=== PATIENT | male | born 1975 | race Caucasian/White ===

== ENCOUNTER → 2023-03-18 15:33 | Outpatient (BNVA) | payer OTHER, SELFPAY | PROVIDERS: Visit Provider Physician Assistant | DX: Z13.89 Encounter for screening for other disorder (principal) ==

== ENCOUNTER → 2023-07-05 15:22 | Outpatient (BNVA) | payer OTHER, SELFPAY | PROVIDERS: Visit Provider Physician Assistant | DX: M54.12 Radiculopathy, cervical region (principal); G62.9 Polyneuropathy, unspecified | CPT/HCPCS: 99212 ==

== ENCOUNTER 2023-07-21 08:10 | Outpatient (AMB) | payer OTHER, SELFPAY ==
--- NOTE | 2023-07-21 08:14 | MHC.OFFVIS ---
Intake Vital Signs 07/21/23 08:16 Height 5 ft 11 in Weight 149 lb BMI 20.8 BP 120/74 Blood Pressure Location Rt brachial Position Sitting Intake Visit Reasons: NPV-Polyneuropathy Intake Note: Patient presents for new patient evaluation. Patient states I don't sleep,i toss and turn they tried me on medicine and nothing works. Allergies morphine Allergy (Severe, Verified 07/21/23 08:18) Anaphylaxis Medication List - Last Reconciled 07/21/23 by Florecita Otoole MD clonidine HCl 0.1 mg PO TID omeprazole 40 mg PO DAILY Oxygen Home Use As directed prazosin 2 mg PO BEDTIME sertraline 50 mg PO DAILY HPI HPI Comments History of Present Illness Details 47y/o male with chronic neck issues comes for evaluation of burning , sharp pain,tingling sensation in his feet, legs ,hands. He is not clear when this started but says atleast 5 years even prior to his anterior cervical fusion surgery. He was seen at spine center and had another surgery- foraminotomies in Nov 2022 but did not notice any change the symptoms. The pain is present throughout the day with rest and action. He constantly moves his hands and feet to get comfortable. He reports throbbing pain in the neck since his surgery. He denies numbness. He reports generalized weakness. No urinary incontinence. He reports some urinary retention ? sees urologist. He has constipation seen by GI. He denies double vision , speech problems . He has chronic insomnia - has trouble falling asleep and staying asleep. he also has loud snoring and excessive daytime fatigue. He reports chronic generalized headaches atleast for 5 years , with nausea with occasional photophobia . He takes ibuprofen and extra strenghth tylenol almost every day. He says he has had multiple evaluations for his chronic pain. He does not work- stopped 7 years ago because of neck pain. [facility] Medical History (Updated 07/21/23 @ 08:51 by Florecita Otoole MD) Asthma Chronic headaches COPD (chronic obstructive pulmonary disease) Depression GERD (gastroesophageal reflux disease) Insomnia Memory loss Neck pain with history of cervical spinal surgery Numbness and tingling in both hands Numbness and tingling of both lower extremities PTSD (post-traumatic stress disorder) Surgical History (Updated 07/21/23 @ 08:19 by TREVOR Zaidi) H/O knee surgery H/O neck surgery History of carpal tunnel release Family History (Updated 07/21/23 @ 08:20 by TREVOR Zaidi) Mother Cancer Brother Cancer Sister Cancer Social History (Updated 07/21/23 @ 08:20 by TREVOR Zaidi) Alcohol intake: never Patient Tobacco Use Status: Current someday Tobacco user Review of Systems Const Reports headache(s) and Reports weight loss ENT Reports otalgia, Reports headache(s) and Reports neck pain Card Reports dyspnea Resp Reports dyspnea GI Reports constipation and Reports nausea Reports difficulty urinating Musc Reports back pain, Reports neck pain and Reports tingling Neuro Reports headache(s), Reports memory loss, Reports tingling and Reports paresthesias Psych Reports depression and Reports memory loss Physical Exam Vital Signs: Last Vital Signs BP 120/74 07/21/23 08:16 BMI result Body Mass Index 20.8 Const General: cooperative, comfortable and no acute distress Nutritional Appearance: average body habitus Orientation/consciousness: patient oriented x3 Eyes Pupils: Equal, round and reactive pupils present Neuro Other: restricted range of motion neck with tightness tenderness in mariaa trapezius and splenius weakness of mariaa hand grasps General: patient oriented x3, tone normal, moves all extremities and no focal motor deficits Cranial nerves: Yes Facial sensation intact/muscles of mastication intact, Yes Equal, round and reactive pupils present, Yes Bilaterally intact EOM present, Yes Nystagmus not present, Yes Normal facial strength present and Yes Midline tongue present Cognition (Neuro): normal cognition Gait exam (Neuro): Normal gait present Motor exam (neuro): 5/5 motor strength present throughout and Normal motor muscle tone present throughout Deep tendon reflexes (DTR's): Right triceps reflex intensity grade: 2+, Left triceps reflex intensity grade: 2+, Rt Biceps (C5, C6): 2+, Left biceps reflex intensity grade: 2+, Right brachioradialis reflex intensity grade: 2+, Left brachioradialis reflex intensity grade: 2+, Right patellar reflex intensity grade: 2+ and Left patellar reflex intensity grade: 3+ Coordination: [id number] test normal Assessment & Plan Assessment & Plan (1) Numbness and tingling in both hands: Code(s): R20.0 - Anesthesia of skin; R20.2 - Paresthesia of skin (2) Numbness and tingling of both lower extremities: Code(s): R20.0 - Anesthesia of skin; R20.2 - Paresthesia of skin (3) Neck pain with history of cervical spinal surgery: Code(s): M54.2 - Cervicalgia; Z98.890 - Other specified postprocedural states Plan Reports from PCP for review- labs, MRIs, previous neuro evaluations etc I will schedule him for EMG NCS to evaluate for possible neuropathy I will trial him on gabapentin 300mg bid Baclofen 10mg qhs and magnesium 400mg qhs Orders: Orders NE electromyogram (EMG) Today R20.0 - Anesthesia of skin, R20.2 - Paresthesia of skin Referrals Pain Management Referral M54.2 - Cervicalgia, Z98.890 - Other specified postprocedural states Medications: New gabapentin 300 mg PO BID 60 caps 3RF baclofen 10 mg PO BEDTIME 30 tabs 6RF magnesium oxide 400 mg PO BEDTIME 30 tabs 6RF Coding Level of Care Code New Pt Level 4 (25546) Diagnoses Numbness and tingling in both hands R20.0; R20.2 Numbness and tingling of both lower extremities R20.0; R20.2 Neck pain with history of cervical spinal surgery M54.2; Z98.890
[2023-07-21 08:16] VITALS: BP 120/74; BMI 20.8
== END 2023-07-21 08:56 | disposition home or self-care (01) ==
PROVIDERS: Visit Provider Psychiatry & Neurology Neurology
DX: R20.0 Anesthesia of skin (principal); R20.2 Paresthesia of skin; M54.2 Cervicalgia; Z98.890 Other specified postprocedural states
CPT/HCPCS: 99204

== ENCOUNTER → 2023-07-21 08:10 | Outpatient (BNVA) | payer OTHER, SELFPAY | PROVIDERS: Visit Provider Psychiatry & Neurology Neurology | DX: R20.0 Anesthesia of skin (principal); R20.2 Paresthesia of skin; M54.2 Cervicalgia | CPT/HCPCS: 99202 ==

== ENCOUNTER 2023-07-27 08:56 | Outpatient (AMB) | payer OTHER, SELFPAY ==
--- NOTE | 2023-07-27 09:12 | MHC.OFFVIS ---
Intake Vital Signs 07/27/23 09:18 Height 5 ft 11 in Weight 152 lb 6 oz BMI 21.2 BP 120/80 Blood Pressure Location Lt brachial Position Sitting Respiration 16 Pulse 78 Pulse Source Pulse Oximeter Pulse Oximetry (%) 96 Oxygen Delivery Method Room Air Intake Visit Reasons: CERVICALGIA Allergies morphine Allergy (Severe, Verified 07/27/23 09:09) Anaphylaxis HPI HPI Comments History of Present Illness Details Kirby is a very pleasant 47 year old male who presents to the office today for evaluation and management of his chronic neck pain. Patient s/p numerous surgeries to his cervical spine, most recent one in 2022 at [facility]. He reports all over burning pain that has been present since before surgery but seems to be getting worse. This pain is constant and unrelenting. Surgery did not alleviate the pain. He was recently evaluated by Duane García, neurosurgery and also by Dr. Otoole in neurology. Neurosurgery ordered MRI Cervical spine that was completed at [facility], patient is awaiting follow up with their office. Neurology started patient on gabapentin, baclofen and magnesium. He states none of these medications are helping. EMG order pending. He was given oxycodone at some point in the past and reports that provided him some relief. Pain today is rated 8/10, burning and constant. In terms of muscle damage condition is described as aching, shooting, spasming, hot, burning, stabbing, sharp, numb, throbbing, tingling, pins and needles. Pain is negatively impacting patient's enjoyment of life, mood, normal work, relationships with people and sleep. [facility] Medical History (Updated 07/27/23 @ 13:26 by Barbara Concepcion APRN, CHEMICAL OPERATIONS AND TRAINING) Asthma Chronic headaches COPD (chronic obstructive pulmonary disease) Depression GERD (gastroesophageal reflux disease) Insomnia Memory loss Neck pain with history of cervical spinal surgery Numbness and tingling in both hands Numbness and tingling of both lower extremities PTSD (post-traumatic stress disorder) Surgical History (Updated 07/21/23 @ 08:19 by TREVOR Zaidi) H/O knee surgery H/O neck surgery History of carpal tunnel release Family History (Updated 07/21/23 @ 08:20 by TREVOR Zaidi) Mother Cancer Brother Cancer Sister Cancer Social History (Updated 07/21/23 @ 08:20 by TREVOR Zaidi) Alcohol intake: never Patient Tobacco Use Status: Current someday Tobacco user Review of Systems Const All systems reviewed & are unremarkable except as noted in HPI and below Physical Exam Vital Signs: Last Vital Signs Pulse 78 07/27/23 09:18 Resp 16 07/27/23 09:18 BP 120/80 07/27/23 09:18 Pulse Ox 96 07/27/23 09:18 Oxygen Delivery Method Room Air 07/27/23 09:18 BMI result Body Mass Index 21.2 General: awake, alert, oriented. Answers questions appropriately. Fully engaged in examination. Skin: warm, dry, intact HEENT: Normocephalic. Hearing intact. Cardiac: External chest normal in appearance. Respiratory: No cough, audible wheezing or stridor. Abdomen: without gross distension. MS: No obvious swelling or deformities. Able to transition from sit to stand unassisted. Ambulates with bilaterally normal heel strike and toe off Neurological: Oriented to person, place, time and situation. Thought process intact. Psychiatric: Appropriate mood and affect. Good judgment and insight. Assessment & Plan Assessment & Plan (1) Cervical radiculopathy: Code(s): M54.12 - Radiculopathy, cervical region (2) Neuropathy: Code(s): G62.9 - Polyneuropathy, unspecified (3) Post laminectomy syndrome: Code(s): M96.1 - Postlaminectomy syndrome, not elsewhere classified Plan: Patient presented to the office today for evaluation and management of his chronic neck pain and bilateral upper and lower extremity neuropathy. Patient had recent MRI and is awaiting follow up with neurosurgery. He was advised that our chronic opioid progam is currently closed, we discussed options for interventional treatment including diagnostic testing, steroid injections, PNS, RFA and more permanent neuromodulation. Pamphlet for Nevro SCS given to patient today but ultimately he needs to follow up with neurosurgery prior to interventional treatment. If neurosurgery decides that patient is not a candidate for surgical intervention he can return to us for interventional options including SCS which would offer coverage for widespread neuropathy in the setting of post laminectomy syndrome. C/W EMG as planned by neurology C/W meds as prescribed by neurology Follow up as planned with neurosurgery and neurology Follow up here as needed once cleared by neurosurgery. Coding Level of Care Code New Pt Level 4 (18097) Diagnoses Cervical radiculopathy M54.12 Neuropathy G62.9 Post laminectomy syndrome M96.1
[2023-07-27 09:18] VITALS: BP 120/80; PULSE 78; RESP 16; O2SAT 96; BMI 21.2
== END 2023-07-27 09:35 | disposition home or self-care (01) ==
PROVIDERS: PCP Internal Medicine; Visit Provider Registered Nurse Emergency
DX: M54.12 Radiculopathy, cervical region (principal); G62.9 Polyneuropathy, unspecified; M96.1 Postlaminectomy syndrome, not elsewhere classified
CPT/HCPCS: 99204

== ENCOUNTER → 2023-07-27 08:56 | Outpatient (BNVA) | payer OTHER, SELFPAY | PROVIDERS: PCP Internal Medicine; Visit Provider Registered Nurse Emergency ==

== ENCOUNTER 2023-09-02 14:55 | Outpatient (REF) | payer OTHER, SELFPAY ==
--- NOTE | 2023-09-02 14:57 | EMG_ITS ---
Chief complaint: History of cervical surgeries x2, right Carpal Tunnel Syndrome surgery 3 years ago, continues with paresthesias on both upper extremities Reason for referral: Evaluate for neuropathy Referred by: Dr. Otoole/Sarah Eduardo NP Procedure done: Bilateral upper extremities NCS/EMG Precautions and/or limitations: None The limb temperature was monitored continuously and remained between 32-36 degrees C during the performance of the NCS. Nerve Conduction Studies Anti Sensory Summary Table ?Stim Site NR Onset (ms) Norm Onset (ms) Peak (ms) Norm Peak (ms) O-P Amp (?V) Norm O-P Amp Site1 Site2 Delta-0 (ms) Dist (cm) Wu (m/s) Norm Wu (m/s) Left Median Anti Sensory (2nd Digit) Wrist ? 3.1 3.7 <3.6 19.5 >10 Wrist 2nd Digit 3.1 14.0 45 Right Median Anti Sensory (2nd Digit) Wrist ? 3.1 4.2 <3.6 16.7 >10 Wrist 2nd Digit 3.1 14.0 45 Right Radial Anti Sensory (Thumb) Forearm ? 1.8 2.4 <3.1 8.7 Forearm Thumb 1.8 0.0 Left Ulnar Anti Sensory (5th Digit) Wrist ? 2.6 3.5 <3.7 7.7 >15.0 Wrist 5th Digit 2.6 14.0 54 Right Ulnar Anti Sensory (5th Digit) Wrist ? 3.1 3.8 <3.7 14.3 >15.0 Wrist 5th Digit 3.1 14.0 45 Motor Summary Table ?Stim Site NR Onset (ms) Norm Onset (ms) O-P Amp (mV) Norm O-P Amp iAmp (mV) Amp (1st) (%) Site1 Site2 Delta-0 (ms) Dist (cm) Wu (m/s) Norm Wu (m/s) Left Median Motor (Abd Poll Brev) Wrist ? 4.2 <3.9 4.4 >4.5 4.9 100.0 Elbow Wrist 4.1 23.0 56 >45 Elbow ? 8.3 4.3 4.9 97.7 Right Median Motor (Abd Poll Brev) Wrist ? 4.5 <3.9 4.4 >4.5 5.0 100.0 Elbow Wrist 4.6 25.0 54 >45 Elbow ? 9.1 4.1 4.7 93.2 Left Ulnar Motor (Abd Dig Minimi) Wrist ? 2.7 <3.0 7.0 >5 8.3 100.0 B Elbow Wrist 3.7 22.0 59 >45 B Elbow ? 6.4 6.6 7.9 94.3 A Elbow B Elbow 1.5 10.0 67 >45 A Elbow ? 7.9 6.1 7.4 87.1 Right Ulnar Motor (Abd Dig Minimi) Wrist ? 2.7 <3.0 5.8 >5 7.5 100.0 B Elbow Wrist 3.4 20.0 59 >45 B Elbow ? 6.1 5.9 7.6 101.7 A Elbow B Elbow 1.4 10.0 71 >45 A Elbow ? 7.5 2.7 3.8 46.6 EMG ?Side Muscle Nerve Root Ins Act Fibs Psw Amp Dur Poly Recrt Int Pat Comment Right 1stDorInt Ulnar C8-T1 Nml Nml Nml Nml Nml 0 Nml Complete Right FlexCarRad Median C6-7 Nml Nml Nml Nml Nml 1+ Nml Complete Right Biceps Musculocut C5-6 Nml Nml Nml Nml Nml 0 Nml Complete Right Triceps Radial C6-7-8 Nml Nml Nml Nml Nml 0 Nml Complete Right Deltoid Axillary C5-6 Nml Nml Nml Nml Nml 0 Nml Complete Left 1stDorInt Ulnar C8-T1 Nml Nml Nml Nml Nml 0 Nml Complete Left FlexCarRad Median C6-7 Nml Nml Nml Incr Incr 1+ Nml Complete Left Biceps Musculocut C5-6 Nml Nml Nml Nml Nml 0 Nml Complete Left Triceps Radial C6-7-8 Nml Nml Nml Nml Nml 0 Nml Complete Left Deltoid Axillary C5-6 Nml Nml Nml Nml Nml 0 Nml Complete FINDINGS: Right median motor nerve showed prolonged distal latency, small amplitude and normal conduction velocity. Right ulnar motor nerve showed normal distal latency, drop in amplitude above elbow but still normal conduction velocity. Left median motor nerve showed prolonged distal latency, small amplitude and normal conduction velocity. Bilateral median sensory nerves showed prolonged peak latency. Right ulnar sensory nerve showed prolonged peak latency. All other nerves tested were within normal. Concentric needle EMG was performed in selected muscles of the bilateral upper extremities. Study revealed signs of electric abnormalities as shown in the table below. Right FCR showed polyphasia. Left FCR showed increased duration and amplitude, and polyphasia. IMPRESSION: 1. This is an abnormal study. 2. There is electrodiagnostic evidence for bilateral moderate-severe median neuropathy at the wrist, consistent with Carpal Tunnel Syndrome. 3. There is electrodiagnostic evidence for bilateral C6-7 chronic radiculopathy. 4. There is electrodiagnostic evidence for right ulnar neuropathy at the elbow. CLINICAL COMMENT: Dr. Otoole's notes reviewed. Please order lower extremity EMG if needed. Thank you for your kind referral. Tamiko Gupta MD, ADRIANA Board Certified, [place] Board [employer] and Rehabilitation (ABPMR) Board Certified, [place] Board [employer] Electrodiagnostic [employer] (ABEM) CODIN [id number] x2 MTDD
== END 2023-09-02 14:56 | disposition home or self-care (01) ==
LOC: HO.NEURO 14:55
PROVIDERS: PCP Internal Medicine; Visit Provider Nurse Practitioner Family
DX: R20.0 Anesthesia of skin (principal); R20.2 Paresthesia of skin
CPT/HCPCS: 95886; 95911

== ENCOUNTER → 2023-09-02 14:57 | Outpatient (BNV) | payer OTHER, SELFPAY | PROVIDERS: PCP Internal Medicine; Visit Provider Physical Medicine & Rehabilitation | DX: G56.13 Other lesions of median nerve, bilateral upper limbs (principal); G56.03 Carpal tunnel syndrome, bilateral upper limbs | CPT/HCPCS: 95886; 95911 ==

== ENCOUNTER 2023-12-21 07:26 | Outpatient (AMB) | payer OTHER, SELFPAY ==
--- NOTE | 2023-12-21 07:39 | MHC.OFFVIS ---
Intake Vital Signs 12/21/23 07:45 Height 5 ft 11 in Weight 142 lb BMI 19.8 BP 114/68 Blood Pressure Location Rt brachial Position Sitting Respiration 16 Pulse 82 Pulse Source Pulse Oximeter Pulse Oximetry (%) 97 Oxygen Delivery Method Room Air Intake Visit Reasons: 2m f/u Polyneuropathy- CONF Intake Note: Pt presents for 4 month follow up for polyneuropathy. Certified Pharmacy Technician Required: No Allergies morphine Allergy (Severe, Verified 12/21/23 07:44) Anaphylaxis Medication List - Last Reconciled 12/21/23 by Florecita Otoole MD baclofen 10 mg PO BEDTIME clonidine HCl 0.1 mg PO TID gabapentin 300 mg PO BID magnesium oxide 400 mg PO BEDTIME omeprazole 40 mg PO DAILY Oxygen Home Use As directed prazosin 2 mg PO BEDTIME sertraline 50 mg PO DAILY HPI HPI Comments History of Present Illness Details 48y/o male with chronic neck issues comes for follow up of burning , sharp pain,tingling sensation in his feet, legs ,hands.He did not have his EMG LE His EMG UE showed mariaa carpal tunnel C56 radiculopathy He did not see hand surgeon yet Gabapentin helps minimally He was seen at Pain management but did not have a follow up. He is not clear when this started but says atleast 5 years even prior to his anterior cervical fusion surgery. He was seen at spine center and had another surgery- foraminotomies in Nov 2022 but did not notice any change the symptoms. The pain is present throughout the day with rest and action. He constantly moves his hands and feet to get comfortable. He reports throbbing pain in the neck since his surgery. He denies numbness. He reports generalized weakness. No urinary incontinence. He reports some urinary retention ? sees urologist. He has constipation seen by GI. He denies double vision , speech problems . He has chronic insomnia - has trouble falling asleep and staying asleep. he also has loud snoring and excessive daytime fatigue. He reports chronic generalized headaches atleast for 5 years , with nausea with occasional photophobia . He takes ibuprofen and extra strenghth tylenol almost every day. He says he has had multiple evaluations for his chronic pain. He does not work- stopped 7 years ago because of neck pain. [facility] Medical History (Updated 12/21/23 @ 08:03 by Florecita Otoole MD) Cervical disc disorder at C5-C6 level with radiculopathy Carpal tunnel syndrome on both sides Neck pain with history of cervical spinal surgery Numbness and tingling in both hands Numbness and tingling of both lower extremities PTSD (post-traumatic stress disorder) Insomnia Memory loss GERD (gastroesophageal reflux disease) Chronic headaches Depression COPD (chronic obstructive pulmonary disease) Asthma Surgical History H/O neck surgery H/O knee surgery History of carpal tunnel release Family History Mother Cancer Brother Cancer Sister Cancer Social History Alcohol intake: never Patient Tobacco Use Status: Current someday Tobacco user Physical Exam Vital Signs: Last Vital Signs Pulse 82 12/21/23 07:45 Resp 16 12/21/23 07:45 BP 114/68 12/21/23 07:45 Pulse Ox 97 12/21/23 07:45 Oxygen Delivery Method Room Air 12/21/23 07:45 BMI result Body Mass Index 19.8 Const General: cooperative, comfortable and no acute distress Nutritional Appearance: average body habitus Orientation/consciousness: patient oriented x3 Eyes Pupils: Equal, round and reactive pupils present Neuro Other: restricted range of motion neck with tightness tenderness in mariaa trapezius and splenius weakness of mariaa hand grasps General: patient oriented x3, tone normal, moves all extremities and no focal motor deficits Cranial nerves: Yes Facial sensation intact/muscles of mastication intact, Yes Equal, round and reactive pupils present, Yes Bilaterally intact EOM present, Yes Nystagmus not present, Yes Normal facial strength present and Yes Midline tongue present Cognition (Neuro): normal cognition Gait exam (Neuro): Normal gait present Motor exam (neuro): 5/5 motor strength present throughout and Normal motor muscle tone present throughout Deep tendon reflexes (DTR's): Right triceps reflex intensity grade: 1+, Left triceps reflex intensity grade: 1+, Rt Biceps (C5, C6): 1+, Left biceps reflex intensity grade: 1+, Right brachioradialis reflex intensity grade: 1+, Left brachioradialis reflex intensity grade: 1+, Right patellar reflex intensity grade: 1+ and Left patellar reflex intensity grade: 1+ Coordination: [id number] test normal Assessment & Plan Assessment & Plan (1) Numbness and tingling of both lower extremities: Code(s): R20.0 - Anesthesia of skin; R20.2 - Paresthesia of skin (2) Neck pain with history of cervical spinal surgery: Code(s): M54.2 - Cervicalgia; Z98.890 - Other specified postprocedural states (3) Carpal tunnel syndrome on both sides: Code(s): G56.03 - Carpal tunnel syndrome, bilateral upper limbs (4) Cervical disc disorder at C5-C6 level with radiculopathy: Code(s): M50.122 - Cervical disc disorder at C5-C6 level with radiculopathy (5) Numbness and tingling in both hands: Code(s): R20.0 - Anesthesia of skin; R20.2 - Paresthesia of skin Plan Reports from PCP for review- labs, MRIs, previous neuro evaluations etc I will schedule him for EMG NCS LE to evaluate for possible neuropathy ? related to alcoholism Increase gabapentin 600mg tid Baclofen 10mg qhs and magnesium 400mg qhs Check Vit B 12 Vit B6 B 1 levels suggested complex and Alpha lipoic acid 600mg qd Orders: Orders Vitamin B12 and Folate Today G62.9 - Polyneuropathy, unspecified Vitamin D 25-OH (D2 and D3) Today G62.9 - Polyneuropathy, unspecified Comprehensive Met. Panel Today G62.9 - Polyneuropathy, unspecified Complete Blood Count Auto Diff Today G62.9 - Polyneuropathy, unspecified TSH reflex Free T4 Today G62.9 - Polyneuropathy, unspecified Vitamin B6 Today G62.9 - Polyneuropathy, unspecified Vitamin B1 Today G62.9 - Polyneuropathy, unspecified NE electromyogram (EMG) Today R20.0 - Anesthesia of skin, R20.2 - Paresthesia of skin Medications: New gabapentin 600 mg PO TID 90 tabs 6RF Discontinued gabapentin Discontinued Reason: Doctor's Order 300 mg PO BID 60 caps 3RF Coding Level of Care Code Est Pt Level 4 (06717) Diagnoses Numbness and tingling of both lower extremities R20.0; R20.2 Neck pain with history of cervical spinal surgery M54.2; Z98.890 Carpal tunnel syndrome on both sides G56.03 Cervical disc disorder at C5-C6 level with radiculopathy M50.122 Numbness and tingling in both hands R20.0; R20.2
[2023-12-21 07:45] VITALS: BP 114/68; PULSE 82; RESP 16; O2SAT 97; BMI 19.8
== END 2023-12-21 08:03 | disposition home or self-care (01) ==
PROVIDERS: PCP Internal Medicine; Visit Provider Psychiatry & Neurology Neurology
DX: R20.0 Anesthesia of skin (principal); R20.2 Paresthesia of skin; M50.122 Cervical disc disorder at C5-C6 level with radiculopathy; G56.03 Carpal tunnel syndrome, bilateral upper limbs; Z98.890 Other specified postprocedural states
CPT/HCPCS: 99214

== ENCOUNTER → 2023-12-21 07:26 | Outpatient (BNVA) | payer OTHER, SELFPAY | PROVIDERS: PCP Internal Medicine; Visit Provider Psychiatry & Neurology Neurology | DX: R20.0 Anesthesia of skin (principal); R20.2 Paresthesia of skin; G56.03 Carpal tunnel syndrome, bilateral upper limbs; M50.122 Cervical disc disorder at C5-C6 level with radiculopathy; Z98.890 Other specified postprocedural states | CPT/HCPCS: 99212 ==

== ENCOUNTER 2024-02-03 09:11 | Outpatient (AMB) | payer OTHER, SELFPAY ==
[2024-02-03 09:22] VITALS: BP 123/77; PULSE 89; RESP 20; O2SAT 98; BMI 20.9
--- NOTE | 2024-02-03 09:22 | A.OFFVIS_ITS ---
Intake Vital Signs 02/03/24 09:22 Height 5 ft 11 in Weight 150 lb 2 oz BMI 20.9 BP 123/77 Blood Pressure Location Lt brachial Position Sitting Respiration 20 Pulse 89 Pulse Source Pulse Oximeter Pulse Oximetry (%) 98 Oxygen Delivery Method Room Air Intake Visit Reasons: Follow Up Allergies morphine Allergy (Severe, Verified 02/03/24 09:23) Anaphylaxis HPI HPI Comments History of Present Illness Details Kirby presents back to the office today for follow-up of his cervical neck pain and bilateral upper extremity neuropathy. Patient reports that after last visit here he completed an MRI. He states that he has not heard back from neuro [facility] with the results. His results were reviewed on the phone in his patient portal. He reports symptoms continue, pain is worsening midline. Today rated as 10/10 Prior: Kirby is a very pleasant 47 year old male who presents to the office today for evaluation and management of his chronic neck pain. Patient s/p numerous surgeries to his cervical spine, most recent one in [address] [facility]. He reports all over burning pain that has been present since before surgery but seems to be getting worse. This pain is constant and unrelenting. Surgery did not alleviate the pain. He was recently evaluated by Duane García, neurosurgery and also by Dr. Otoole in neurology. Neurosurgery ordered MRI Cervical spine that was completed at [facility], patient is awaiting follow up with their office. Neurology started patient on gabapentin, baclofen and magnesium. He states none of these medications are helping. EMG order pending. He was given oxycodone at some point in the past and reports that provided him some relief. Pain today is rated 8/10, burning and constant. In terms of muscle damage condition is described as aching, shooting, spasming, hot, burning, stabbing, sharp, numb, throbbing, tingling, pins and needles. Pain is negatively impacting patient's enjoyment of life, mood, normal work, relationships with people and sleep. [facility] Medical History (Updated 12/21/23 @ 08:03 by Florecita Otoole MD) Cervical disc disorder at C5-C6 level with radiculopathy Carpal tunnel syndrome on both sides Neck pain with history of cervical spinal surgery Numbness and tingling in both hands Numbness and tingling of both lower extremities PTSD (post-traumatic stress disorder) Insomnia Memory loss GERD (gastroesophageal reflux disease) Chronic headaches Depression COPD (chronic obstructive pulmonary disease) Asthma Surgical History H/O neck surgery H/O knee surgery History of carpal tunnel release Family History Mother Cancer Brother Cancer Sister Cancer Social History Alcohol intake: never Patient Tobacco Use Status: Current someday Tobacco user Review of Systems Const All systems reviewed & are unremarkable except as noted in HPI and below Physical Exam Vital Signs: Last Vital Signs Pulse 89 02/03/24 09:22 Resp 20 02/03/24 09:22 BP 123/77 02/03/24 09:22 Pulse Ox 98 02/03/24 09:22 Oxygen Delivery Method Room Air 02/03/24 09:22 BMI result Body Mass Index 20.9 General: awake, alert, oriented. Answers questions appropriately. Fully engaged in examination. Skin: warm, dry, intact HEENT: Normocephalic. Hearing intact. Cardiac: External chest normal in appearance. Respiratory: No cough, audible wheezing or stridor. Abdomen: without gross distension. MS: No obvious swelling or deformities. Able to transition from sit to stand unassisted. Ambulates with bilaterally normal heel strike and toe off Limited range of motion cervical spine Bilateral upper extremity strength 5/5 Bilateral upper extremity DTR 2+ Spurling positive Neurological: Oriented to person, place, time and situation. Thought process intact. Psychiatric: Appropriate mood and affect. Good judgment and insight. Results Reviewed Results Reviewed: Reviewed on patient's portal via his cell phone during the visit. MRI cervical spine [facility] dated July 07 2023 Impression: Multilevel cervical spondylosis with multilevel neural foraminal narrowing as above, most severe at C4-5 with severe right and moderate left neural foramina narrowing. No spinal canal narrowing. Report has been requested from [facility] to upload to the patient's chart Assessment & Plan Assessment & Plan (1) Cervical radiculopathy: Code(s): M54.12 - Radiculopathy, cervical region (2) Neuropathy: Code(s): G62.9 - Polyneuropathy, unspecified (3) Post laminectomy syndrome: Code(s): M96.1 - Postlaminectomy syndrome, not elsewhere classified Plan Patient presented to the office today for follow-up chronic neck pain and bilateral upper and lower extremity neuropathy. Recent MRI reviewed, discussed with Duane García at Neurosurgery. We discussed options for interventional treatment including diagnostic testing, steroid injections, PNS, RFA and more permanent neuromodulation. Pamphlet for SCS given to patient last visit and again today. [employer] pamphlet given today. Patient aware that for any implantable devices it is insurance requirement that he gets mental health clearance. Patient currently sees provider at [facility], he will discuss with them to see if they are able to provide this mental health clearance. Information was given detailing what we need in a letter to clear him for implantable device. Once we receive mental health clearance, will plan for cervical spinal cord stimulator trial with [employer]. All questions and concerns were answered, patient agrees with the plan Follow-up after trial, sooner if needed Coding Level of Care Code Est Pt Level 3 (35910) Diagnoses Cervical radiculopathy M54.12 Neuropathy G62.9 Post laminectomy syndrome M96.1
== END 2024-02-03 09:51 | disposition home or self-care (01) ==
PROVIDERS: PCP Internal Medicine; Visit Provider Registered Nurse Emergency
DX: M54.12 Radiculopathy, cervical region (principal); G62.9 Polyneuropathy, unspecified; M96.1 Postlaminectomy syndrome, not elsewhere classified
CPT/HCPCS: 99213

== ENCOUNTER → 2024-02-03 09:11 | Outpatient (BNVA) | payer OTHER, SELFPAY | PROVIDERS: PCP Internal Medicine; Visit Provider Registered Nurse Emergency | DX: M54.12 Radiculopathy, cervical region (principal); G62.9 Polyneuropathy, unspecified; M96.1 Postlaminectomy syndrome, not elsewhere classified | CPT/HCPCS: 99212 ==

== ENCOUNTER 2024-03-14 07:33 | Outpatient (AMB) | payer OTHER, SELFPAY ==
--- NOTE | 2024-03-14 07:36 | MHC.OFFVIS ---
Vital Signs 03/14/24 07:37 Height 5 ft 11 in Weight 150 lb BMI 20.9 BP 122/68 Blood Pressure Location Rt brachial Position Sitting Respiration 16 Pulse 80 Pulse Source Palpation Intake Visit Reasons: 2 mo f/u-LVM Intake Note: Pt presens for 3 month follow up for cervical radiculopathy. Sh[employer] Required: No Allergies morphine Allergy (Severe, Verified 03/14/24 07:36) Anaphylaxis Medication List - Last Reconciled 03/14/24 by Florecita Otoole MD baclofen 20 mg (2 x 10 mg) PO BEDTIME clonidine HCl 0.1 mg PO TID gabapentin 600 mg PO TID magnesium oxide 400 mg PO BEDTIME omeprazole 40 mg PO DAILY Oxygen Home Use As directed prazosin 2 mg PO BEDTIME sertraline 50 mg PO DAILY HPI Comments Details: 48y/o male with chronic neck issues comes for follow up of burning , sharp pain,tingling sensation in his feet, legs ,hands.He did not have his EMG LE His EMG UE showed mariaa carpal tunnel C56 radiculopathy He was seen by hand surgeon for carpal tunnel and he is planning to have surgery on his left He was also seen by pain management - planning a spinal cord stimulator for neck pain . Gabapentin helps minimally He is not clear when this started but says atleast 5 years even prior to his anterior cervical fusion surgery. He was seen at spine center and had another surgery- foraminotomies in Nov 2022 but did not notice any change the symptoms. The pain is present throughout the day with rest and action. He constantly moves his hands and feet to get comfortable. He reports throbbing pain in the neck since his surgery. He denies numbness. He reports generalized weakness. No urinary incontinence. He reports some urinary retention ? sees urologist. He has constipation seen by GI. He denies double vision , speech problems . He has chronic insomnia - has trouble falling asleep and staying asleep. he also has loud snoring and excessive daytime fatigue. He reports chronic generalized headaches atleast for 5 years , with nausea with occasional photophobia . He takes ibuprofen and extra strenghth tylenol almost every day. He says he has had multiple evaluations for his chronic pain. He does not work- stopped 7 years ago because of neck pain. [facility] Medical History (Updated 12/21/23 @ 08:03 by Florecita Otoole MD) Cervical disc disorder at C5-C6 level with radiculopathy Carpal tunnel syndrome on both sides Neck pain with history of cervical spinal surgery Numbness and tingling in both hands Numbness and tingling of both lower extremities PTSD (post-traumatic stress disorder) Insomnia Memory loss GERD (gastroesophageal reflux disease) Chronic headaches Depression COPD (chronic obstructive pulmonary disease) Asthma Surgical History H/O neck surgery H/O knee surgery History of carpal tunnel release Family History Mother Cancer Brother Cancer Sister Cancer Social History Alcohol intake: never Patient Tobacco Use Status: Current someday Tobacco user Physical Exam Vital Signs: Last Vital Signs Pulse 80 03/14/24 07:37 Resp 16 03/14/24 07:37 BP 122/68 03/14/24 07:37 BMI result Body Mass Index 20.9 Const General: cooperative, comfortable and no acute distress Nutritional Appearance: average body habitus Orientation/consciousness: patient oriented x3 Eyes Pupils: Equal, round and reactive pupils present Neuro Other: restricted range of motion neck with tightness tenderness in mariaa trapezius and splenius weakness of mariaa hand grasps General: patient oriented x3, tone normal, moves all extremities and no focal motor deficits Cranial nerves: Yes Facial sensation intact/muscles of mastication intact, Yes Equal, round and reactive pupils present, Yes Bilaterally intact EOM present, Yes Nystagmus not present, Yes Normal facial strength present and Yes Midline tongue present Cognition (Neuro): normal cognition Gait exam (Neuro): Normal gait present Motor exam (neuro): 5/5 motor strength present throughout and Normal motor muscle tone present throughout Deep tendon reflexes (DTR's): Right triceps reflex intensity grade: 1+, Left triceps reflex intensity grade: 1+, Rt Biceps (C5, C6): 1+, Left biceps reflex intensity grade: 1+, Right brachioradialis reflex intensity grade: 1+, Left brachioradialis reflex intensity grade: 1+, Right patellar reflex intensity grade: 1+ and Left patellar reflex intensity grade: 1+ Coordination: [id number] test normal Assessment & Plan Assessment & Plan (1) Numbness and tingling of both lower extremities: Code(s): R20.0 - Anesthesia of skin; R20.2 - Paresthesia of skin Category: Medical (2) Neck pain with history of cervical spinal surgery: Code(s): M54.2 - Cervicalgia; Z98.890 - Other specified postprocedural states Category: Medical (3) Carpal tunnel syndrome on both sides: Code(s): G56.03 - Carpal tunnel syndrome, bilateral upper limbs Category: Medical (4) Cervical disc disorder at C5-C6 level with radiculopathy: Code(s): M50.122 - Cervical disc disorder at C5-C6 level with radiculopathy Category: Medical (5) Numbness and tingling in both hands: Code(s): R20.0 - Anesthesia of skin; R20.2 - Paresthesia of skin Category: Medical Plan EMG NCS LE to evaluate for possible neuropathy ? related to alcoholism Increase gabapentin 600mg tid Increase Baclofen 20mg qhs and magnesium 400mg qhs Vit B6 B 1 levels - normal suggested complex and Alpha lipoic acid 600mg qd Hand surgery note f/u with Pain Management Medications: Changed From baclofen 10 mg PO BEDTIME 30 tabs 6RF To baclofen 20 mg (2 x 10 mg) PO BEDTIME 60 tabs 6RF Coding Level of Care Code Est Pt Level 4 (23753) Diagnoses Numbness and tingling of both lower extremities R20.0; R20.2 Neck pain with history of cervical spinal surgery M54.2; Z98.890 Carpal tunnel syndrome on both sides G56.03 Cervical disc disorder at C5-C6 level with radiculopathy M50.122 Numbness and tingling in both hands R20.0; R20.2
[2024-03-14 07:37] VITALS: BP 122/68; PULSE 80; RESP 16; BMI 20.9
== END 2024-03-14 07:57 | disposition home or self-care (01) ==
PROVIDERS: PCP Internal Medicine; Visit Provider Psychiatry & Neurology Neurology
DX: R20.0 Anesthesia of skin (principal); R20.2 Paresthesia of skin; M54.2 Cervicalgia; Z98.890 Other specified postprocedural states; G56.03 Carpal tunnel syndrome, bilateral upper limbs; M50.122 Cervical disc disorder at C5-C6 level with radiculopathy
CPT/HCPCS: 99214

== ENCOUNTER → 2024-03-14 07:33 | Outpatient (BNVA) | payer OTHER, SELFPAY | PROVIDERS: PCP Internal Medicine; Visit Provider Psychiatry & Neurology Neurology | DX: G56.03 Carpal tunnel syndrome, bilateral upper limbs (principal); R20.0 Anesthesia of skin; R20.2 Paresthesia of skin; M54.2 Cervicalgia; M50.122 Cervical disc disorder at C5-C6 level with radiculopathy; Z98.890 Other specified postprocedural states | CPT/HCPCS: 99212 ==